=== PATIENT | male | born 1980 | race Two or more races ===

== ENCOUNTER 2018-06-04 09:08 | Emergency (ER) | payer SELFPAY ==
[2018-06-04 09:27] VITALS: BP 113/81; PULSE 78; TEMP 98.4; BMI 49.4
--- NOTE | 2018-06-04 09:49 | PDOC ---
*Physical Exam - Vital Signs Last Vital Signs Temp Pulse Resp BP Pulse Ox 98.4 F 78 18 113/81 94 L 06/04/18 09:21 06/04/18 09:21 06/04/18 09:21 06/04/18 09:21 06/04/18 09:21 Medical Decision Making - Medical Decision Making 06/04/18 09:48 Pt seen by Midlevel Provider under my direct supervision Ancillary studies reviewed I agree with plan as outlined by Midlevel Provider *DC/Admit/Observation/Transfer Diagnosis at time of Disposition: Cough - Discharge Dispostion Disposition: HOME Condition at time of disposition: Stable - Referrals - Patient Instructions Printed Discharge Instructions: DI for Viral Upper Respiratory Infection -- Adult Additional Instructions: Your x-ray shows no evidence of pneumonia today. The cause of your symptoms may possibly be viral and in that case should resolve on its own in time. You should rest, drink plenty of fluids and try [id number] medication for symptomatic relief. Follow-up with your primary care physician as needed - Post Discharge Activity Forms/Work/School Notes: Back to Work
--- NOTE | 2018-06-04 09:56 | PDOC ---
History of Present Illness - General Chief Complaint: Shortness of Breath Stated Complaint: SHORT BREATHING Time Seen by Provider: 06/04/18 09:28 History Source: Patient - History of Present Illness Timing/Duration: reports: yesterday Associated Symptoms: reports: cough Past History - Past Medical History Allergies/Adverse Reactions: Allergies Allergy/AdvReac Type Severity Reaction Status Date / Time No Known Allergies Allergy Verified 06/04/18 09:27 Home Medications: Ambulatory Orders NK [No Known Home Medication] 06/04/18 - Suicide/Smoking/Psychosocial Hx Smoking History: Former smoker Have you smoked in the past 12 months: No Information on smoking cessation initiated: Yes Review of Systems - Review of Systems Constitutional: Yes: Chills HEENTM: Yes: Nose Congestion. No: Ear Pain, Throat Pain Respiratory: Yes: Cough, Shortness of Breath. No: Hemoptysis Cardiac (ROS): Yes: Chest Pain *Physical Exam - Vital Signs Last Vital Signs Temp Pulse Resp BP Pulse Ox 98.4 F 78 18 113/81 94 L 06/04/18 09:21 06/04/18 09:21 06/04/18 09:21 06/04/18 09:21 06/04/18 09:21 - Physical Exam General Appearance: Yes: Appropriately Dressed. No: Apparent Distress HEENT: positive: Normal Voice Neck: positive: Supple. negative: Lymphadenopathy (R), Lymphadenopathy (L) Respiratory/Chest: positive: Lungs Clear, Normal Breath Sounds Integumentary: positive: Dry, Warm Neurologic: positive: Fully Oriented, Alert, Normal Mood/Affect Medical Decision Making - Medical Decision Making 06/04/18 09:53 38 yo M, no sig p,hx, here w/ productive cough w/ pleuritic CP, shortness of breath vs congestion and chills since yesterday. No hemoptysis. Denies sick contacts, recent travel or tob hx. No h/o PNA See exam Possibly URI, r/o PNA, PERCs out Sating 94% on RA but in NAD w/ clear chest/lungs -CXR -reassess 06/04/18 10:36 CXR reviewed by myself and shows no evidence of pneumonia. Repeat vitals improved with pulse ox now 96% on room air without any intervention. Patient stable for discharge with supportive treatment and PMD follow-up as needed *DC/Admit/Observation/Transfer Diagnosis at time of Disposition: Cough - Discharge Dispostion Disposition: HOME Condition at time of disposition: Stable - Referrals - Patient Instructions Printed Discharge Instructions: DI for Viral Upper Respiratory Infection -- Adult Additional Instructions: Your x-ray shows no evidence of pneumonia today. The cause of your symptoms may possibly be viral and in that case should resolve on its own in time. You should rest, drink plenty of fluids and try [id number] medication for symptomatic relief. Follow-up with your primary care physician as needed - Post Discharge Activity Forms/Work/School Notes: Back to Work
== END 2018-06-04 11:00 | disposition home or self-care (01) ==
LOC: JER 09:08
DX: J06.9 Acute upper respiratory infection, unspecified (principal); B97.89 Other viral agents as the cause of diseases classified elsewhere
CPT/HCPCS: 71046-TC-FY; 99281-25